=== PATIENT | male | born 1960 | race Caucasian/White ===

== ENCOUNTER 2017-06-20 09:41 | Emergency (ER) | payer OTHER ==
[~2017-06-20] VITALS: Ht 190.5 cm; Wt 108.9 kg
[~2017-06-20 09:41] MED LIST: MOTRIN800 MG PO; ZITHROMAX Z PA250 MG PO
[2017-06-20] MEDS ORDERED: Synthroid,Lev200 MCG PO (09:50)
[2017-06-20] MEDS ORDERED: ATENOLOL25 MG PO (09:51)
[2017-06-20] MEDS ORDERED: TERAZOSIN HCL5 M1 PO (09:52)
[2017-06-20] MEDS ORDERED: ALEVE220 M1 PO (09:53)
[2017-06-20 10:42] LABS: BASO # 0.1 10*3/uL (0.0-0.1); BASO % 0.5 % (0.0-1.0); EOS # 0.1 10*3/uL (0.0-0.4); EOS % 0.5 % (1.0-4.0); HEMATOCRIT 45.7 % (42.0-52.0); HEMOGLOBIN 16.1 g/dl (14.0-18.0); LYMPH # 0.8 10*3/uL (1.3-4.4); MEAN CELL VOLUME 88.7 fl (80.0-94.0); MEAN CORPUSCULAR HGB 31.3 pg (27.0-31.0); MEAN CORPUSCULAR HGB CONC 35.2 g/dl (33.0-37.0); MEAN PLATELET VOLUME 10.4 fl (9.6-12.3); MONO # 0.4 10*3/uL (0.1-1.0); MONO % 4.5 % (3.0-9.0); NEUT # 8.4 10*3/uL (2.3-7.9); NEUT % 85.7 % (47.0-73.0); PLATELET COUNT AUTOMATED 167 10*3/uL (130-400); RED BLOOD COUNT 5.15 10*6/uL (4.50-5.90); RED CELL DISTRI WIDTH 13.5 % (0-14.5); WHITE BLOOD COUNT 9.8 10*3/uL (4.8-10.8)
[2017-06-20 11:00] LABS: ALBUMIN 3.6 gm/dl (3.1-4.5); CREATININE 1.55 mg/dL (0.70-1.30); POTASSIUM 4.1 mmol/L (3.5-5.1); TOTAL PROTEIN 7.7 gm/dL (6.4-8.2)
[2017-06-20] MEDS ORDERED: LEVAQUIN750 M1 PO (12:13)
== END 2017-06-20 12:17 | disposition home or self-care (01) ==
LOC: ED 09:41
PROVIDERS: Nurse Practitioner Family
DX: J18.1 Lobar pneumonia, unspecified organism (principal); Z79.899 Other long term (current) drug therapy

== ENCOUNTER 2020-04-10 20:13 | Inpatient (IN) | payer OTHER ==
[~2020-04-10] VITALS: Ht 190.5 cm; Wt 106.7 kg
--- NOTE | 2020-04-11 03:30 | NUR ---
PT TO REST ROOM AND BACK TO BED AT THIS TIME. ALL SAFETY PRECAUTIONS INTACT. WILL CONTINUE TO MONITOR.
--- NOTE | 2020-04-11 05:18 | NUR ---
PT CALLED FOR UPDATE. THIS RN INFORMED HER THAT PT WAS RESTING EASY WHILE AWAITING BED ASSIGNMENT.
--- NOTE | 2020-04-11 07:46 | NUR ---
PT IS AWAKE AND ORINETED X3, PT VOICES NO COMPLAINTS, DENIES ANY PAIN OR SOB. LUNGS CLEAR, ABD SOFT NON TENDER. POX 99% RA, HR 77. MENU PROVIDED TO ORDER BREAKFAST. CALL LIGHT IN REACH. PT IS AMBUALTORY. WILL CONTINUE TO MONITOR.
--- NOTE | 2020-04-11 22:15 | NUR ---
A 60, admitted to , under the services of MICHELLE Hong DO with a diagnosis of DELPHINE, DYSPNEA ON EXERTION. Chief complaint is SOB. Patient arrived via ambulatory from ER. Monitor applied. Initial assessment completed. Vital signs taken and recorded. MICHELLE HONG DO notified of admission to the unit. Orders received. See assessment for past medical history, medications and allergies. Patient and/or family oriented to unit. [facility] visitation policy reviewed. Clothing/patient valuable form completed. MICHELLE DOOLEY
--- NOTE | 2020-04-12 00:45 | NUR ---
DR. GRIFFIN NOTIFIED OF PT'S MED REC UTD.
--- NOTE | 2020-04-12 05:51 | NUR ---
NO C/O VOICED. CALL LIGHT IN REACH.
--- NOTE | 2020-04-12 12:35 | NUR ---
[facility]ather[facility] in to talk to patient. Patient states lives at HOME with . There are 6 steps in the home. Physician: SANDIE Pharmacy: [facility] Home health services: NONE Patient's level of ADLs: INDEPENDENT Patient has working utilities: YES DME: NONE Follow-up physician's appointment after d/c: PREFERS TO MAKE OWN AFTER DISCHARGE Does patient want to access PORTAL?: NO Discharge plan PT LIVES AT HOME WITH AND IS INDEPENDENT IN HIS CARE. DENIES HE WILL HAVE ANY NEEDS ON DISCHARGE. PLANS TO RETURN HOME WHEN MEDICALLY STABLE. WILL CONTINUE TO FOLLOW. STATES HE WILL DRIVE HIMSELF HOME.. PHILIPPE BENSON
--- NOTE | 2020-04-12 12:47 | NUR ---
Discharge instructions reviewed with patient. Patient receptive and verbalizes understanding. Follow-up care instructions provided. Written instructions given to patient. Pt declines wheelchair walked out in care of self with belongings.
== END 2020-04-12 12:47 | disposition home or self-care (01) | DRG 193 ==
LOC: ED 20:13 → EDHOLD 22:35 → 5E 04-11 21:05
PROVIDERS: ADMIT Family Medicine; ATTEND Family Medicine
DX: J18.9 Pneumonia, unspecified organism (principal); N17.0 Acute kidney failure with tubular necrosis; N40.0 Benign prostatic hyperplasia without lower urinary tract symptoms; E87.6 Hypokalemia; R79.82 Elevated C-reactive protein (CRP); E80.6 Other disorders of bilirubin metabolism; E83.41 Hypermagnesemia; E03.9 Hypothyroidism, unspecified; I10 Essential (primary) hypertension; J45.20 Mild intermittent asthma, uncomplicated; K21.9 Gastro-esophageal reflux disease without esophagitis; Z68.28 Body mass index [BMI] 28.0-28.9, adult; Z82.49 Family history of ischemic heart disease and other diseases of the circulatory system; Z83.49 Family history of other endocrine, nutritional and metabolic diseases; Z79.899 Other long term (current) drug therapy; Z83.3 Family history of diabetes mellitus

== ENCOUNTER → 2020-07-02 | Outpatient (CLI) | payer OTHER ==
[~2020-07-02] MED LIST changes: +ALEVE220 M1 PO; +ALLOPURINOL100 MG PO; +ATENOLOL25 MG PO; +LEVAQUIN750 M1 PO; +LOSARTAN-HCTZ1 EACH PO; +OMNICEF300 MG PO; +PREDNISONE10 MG PO; +SYMB160 INH; +Synthroid,Lev200 MCG PO; +TERAZOSIN HCL2 M1 PO; +TERAZOSIN HCL5 M1 PO; +ZITHROMAX500 MG PO
== END | disposition home or self-care (01) ==
LOC: COVID19 11:51
PROVIDERS: ATTEND Nurse Practitioner
DX: U07.1 COVID-19 (principal)

== ENCOUNTER → 2021-06-30 | Outpatient (CLI) | payer OTHER | END | disposition home or self-care (01) | LOC: COVID19 16:34 | PROVIDERS: ATTEND Internal Medicine | DX: U07.1 COVID-19 (principal) ==

== ENCOUNTER → 2021-07-03 | Outpatient (CLI) | payer OTHER | END | disposition home or self-care (01) | LOC: COVID19 16:11 | PROVIDERS: ATTEND Internal Medicine | DX: Z11.52 Encounter for screening for COVID-19 (principal) ==

== ENCOUNTER 2022-09-04 20:56 | Emergency (ER) | payer OTHER ==
[~2022-09-04] VITALS: Ht 190.5 cm; Wt 108.9 kg
[2022-09-04] MEDS ORDERED: OMEPRAZOLE40 MG PO (21:08)
[2022-09-04] MEDS ORDERED: ALEVE220 MG PO (21:08)
[2022-09-04] MEDS ORDERED: METOPROLOL SUCC25 M2 PO (21:10)
[2022-09-04 22:52] LABS: BILIRUBIN Negative (Negative); BLOOD Negative (Negative); CLARITY Clear (Clear); COLOR Yellow (Yellow); GLUCOSE Negative (Negative); KETONE Negative (Negative); LEUKO ESTERASE Negative (Negative); NITRITE Negative (Negative); PH 5.5 (4.5-8.0)
[2022-09-04 22:53] LABS: BASO % 0.4 % (0.0-1.0); EOS # 0.2 10*3/uL (0.0-0.4); EOS % 4.4 % (1.0-4.0); HEMATOCRIT 42.4 % (42.0-52.0); LYMPH % 19.7 % (27.0-41.0); MEAN CORPUSCULAR HGB 31.6 pg (27.0-31.0); MEAN PLATELET VOLUME 9.9 fl (9.6-12.3); MONO # 0.6 10*3/uL (0.1-1.0); NEUT # 3.2 10*3/uL (2.3-7.9); NEUT % 64.1 % (47.0-73.0); PLATELET COUNT AUTOMATED 145 10*3/uL (130-400); RED BLOOD COUNT 4.56 10*6/uL (4.50-5.90); RED CELL DISTRI WIDTH 13.5 % (0-14.5)
[2022-09-04 23:01] LABS: EPITHELIAL CELLS 0-2; WBC 0-2 wbc/hpf (0-5)
[2022-09-04 23:07] LABS: POTASSIUM 3.6 mmol/L (3.4-5.1); TOTAL PROTEIN 6.4 gm/dL (6.0-8.0)
== END 2022-09-05 03:37 | disposition home or self-care (01) ==
LOC: ED 20:56
PROVIDERS: Emergency Medicine
DX: N17.9 Acute kidney failure, unspecified (principal); I10 Essential (primary) hypertension; K21.9 Gastro-esophageal reflux disease without esophagitis; E03.9 Hypothyroidism, unspecified; J45.909 Unspecified asthma, uncomplicated; Z79.899 Other long term (current) drug therapy

== ENCOUNTER 2023-04-26 14:31 | Inpatient (IN) | payer OTHER ==
[~2023-04-26] VITALS: Ht 190.5 cm; Wt 114.9 kg
[~2023-04-26 14:31] MED LIST changes: +ALEVE220 MG PO; +METOPROLOL SUCC25 M2 PO; +OMEPRAZOLE40 MG PO
[2023-04-26 14:40] VITALS: BP 103/61
[2023-04-26 14:58] LABS: BASO % 0.5 % (0.0-1.0); EOS # 0.3 10*3/uL (0.0-0.4); HEMATOCRIT 47.4 % (42.0-52.0); LYMPH # 1.2 10*3/uL (1.3-4.4); LYMPH % 14.4 % (27.0-41.0); MEAN CELL VOLUME 91.5 fl (80.0-94.0); MEAN CORPUSCULAR HGB 33.2 pg (27.0-31.0); MEAN CORPUSCULAR HGB CONC 36.3 g/dl (33.0-37.0); MEAN PLATELET VOLUME 10.1 fl (9.6-12.3); MONO # 0.8 10*3/uL (0.1-1.0); MONO % 9.2 % (3.0-9.0); NEUT % 72.4 % (47.0-73.0); PLATELET COUNT AUTOMATED 172 10*3/uL (130-400); RED BLOOD COUNT 5.18 10*6/uL (4.50-5.90); RED CELL DISTRI WIDTH 14.1 % (0-14.5); WHITE BLOOD COUNT 8.2 10*3/uL (4.8-10.8)
[2023-04-26 15:32] LABS: ALKALINE PHOSPHATASE 63 U/L (46-116); BUN 13 mg/dl (9-23); CHLORIDE 102 mmol/L (98-107); POTASSIUM 3.5 mmol/L (3.4-5.1); SGPT/ALT 15 U/L (5-49); TOTAL PROTEIN 7.3 gm/dL (6.0-8.0)
[2023-04-26 17:50] VITALS: BP 134/83
[2023-04-26] MEDS ORDERED: TERAZOSIN HCL2 M1 PO (18:32)
[2023-04-26 20:00] VITALS: BP 150/86
[2023-04-27] VITALS: BP 154/98
[2023-04-27 06:25] LABS: BASO % 0.4 % (0.0-1.0); EOS # 0.2 10*3/uL (0.0-0.4); HEMATOCRIT 45.4 % (42.0-52.0); LYMPH # 0.8 10*3/uL (1.3-4.4); LYMPH % 17.5 % (27.0-41.0); MEAN CORPUSCULAR HGB 32.2 pg (27.0-31.0); MEAN CORPUSCULAR HGB CONC 34.6 g/dl (33.0-37.0); MEAN PLATELET VOLUME 10.3 fl (9.6-12.3); MONO # 0.5 10*3/uL (0.1-1.0); NEUT # 3.1 10*3/uL (2.3-7.9); NEUT % 65.3 % (47.0-73.0); PLATELET COUNT AUTOMATED 137 10*3/uL (130-400); RED BLOOD COUNT 4.88 10*6/uL (4.50-5.90); RED CELL DISTRI WIDTH 13.9 % (0-14.5); WHITE BLOOD COUNT 4.8 10*3/uL (4.8-10.8)
[2023-04-27 06:49] LABS: ALKALINE PHOSPHATASE 55 U/L (46-116); BUN 11 mg/dl (9-23); CHLORIDE 106 mmol/L (98-107); CHOLESTEROL 129 mg/dL (<200); FREE T4 1.28 ng/dl (0.89-1.76); LDL CHOLESTEROL 79 mg/dL (9-159); POTASSIUM 3.9 mmol/L (3.4-5.1); SGPT/ALT 13 U/L (5-49); TOTAL PROTEIN 6.6 gm/dL (6.0-8.0); TRIGLYCERIDES 45 mg/dl (<150)
[2023-04-27 06:54] LABS: ACT PARTIAL THROMBO TIME 25.6 SECONDS (20.0-32.1)
[2023-04-27 08:00] VITALS: BP 152/89
[2023-04-27 12:00] VITALS: BP 150/83
[2023-04-27] MEDS ORDERED: CLOPIDOGREL75 MG PO (14:38)
[2023-04-27] MEDS ORDERED: ASPIRIN ADULT L81 M2 PO (14:38)
[2023-04-27] MEDS ORDERED: LIPITOR20 MG PO (14:42)
== END 2023-04-27 15:31 | disposition home or self-care (01) | DRG 69 ==
LOC: ED 14:31 → EDHOLD 16:22 → 4E 16:22
PROVIDERS: Emergency Medicine; Internal Medicine; ADMIT Emergency Medicine; ATTEND Emergency Medicine
DX: G45.9 Transient cerebral ischemic attack, unspecified (principal); J98.11 Atelectasis; I10 Essential (primary) hypertension; N40.0 Benign prostatic hyperplasia without lower urinary tract symptoms; G43.909 Migraine, unspecified, not intractable, without status migrainosus; K21.9 Gastro-esophageal reflux disease without esophagitis; J45.20 Mild intermittent asthma, uncomplicated; M1A.00X0 Idiopathic chronic gout, unspecified site, without tophus (tophi); R73.9 Hyperglycemia, unspecified; E03.8 Other specified hypothyroidism; Z79.899 Other long term (current) drug therapy; Z82.49 Family history of ischemic heart disease and other diseases of the circulatory system; Z83.49 Family history of other endocrine, nutritional and metabolic diseases; Z79.82 Long term (current) use of aspirin